=== PATIENT | male | born 1945 | race Caucasian/White ===

== ENCOUNTER 2018-01-10 19:42 | Inpatient (IN) | payer MEDICARE ==
[2018-01-10 20:06] LABS: ABSOLUTE BASOPHILS # (AUTO) 0.2 10^3/uL (0.0-0.2); ABSOLUTE EOSINOPHILS # (AUTO) 0.3 10^3/uL (0.0-0.6); ABSOLUTE LYMPHOCYTES (AUTO) 1.4 10^3/uL (0.5-4.7); ABSOLUTE MONOCYTES (AUTO) 0.8 10^3/uL (0.1-1.4); ABSOLUTE NEUT (AUTO) 5.2 10^3/uL (1.7-8.2); BASOPHILS % (AUTO) 2.5 % (0-2); EOSINOPHILS % (AUTO) 3.3 % (0-6); HEMATOCRIT 37.9 % (37.9-51.0); HEMOGLOBIN 12.1 g/dL (13.5-17.0); LYMPHOCYTES % (AUTO) 18.2 % (13-45); MEAN CORPUSCULAR HEMOGLOBIN 25.7 pg (27.0-33.4); MEAN CORPUSCULAR HGB CONC 31.9 g/dL (32.0-36.0); MEAN CORPUSCULAR VOLUME 80 fl (80-97); MONOCYTES % (AUTO) 10.2 % (3-13); PLATELET COUNT 404 10^3/uL (150-450); RED BLOOD COUNT 4.71 10^6/uL (4.35-5.55); RED CELL DISTRIBUTION WIDTH 18.5 % (11.5-14.0); SEGMENTED NEUTROPHILS % (AUTO) 65.8 % (42-78); TOTAL CELLS COUNTED % (AUTO) 100 %; WHITE BLOOD COUNT 7.9 10^3/uL (4.0-10.5)
[2018-01-10 20:30] LABS: ALANINE AMINOTRANSFERASE 16 U/L (21-72); ALBUMIN 3.9 g/dL (3.5-5.0); ALKALINE PHOSPHATASE 71 U/L (38-126); ANION GAP 13 (5-19); ASPARTATE AMINO TRANSFERASE 23 U/L (17-59); BILIRUBIN,DIRECT 0.4 mg/dL (0.0-0.4); BILIRUBIN,TOTAL 0.4 mg/dL (0.2-1.3); BLOOD UREA NITROGEN 38 mg/dL (7-20); CALCIUM 9.2 mg/dL (8.4-10.2); CARBON DIOXIDE 28 mmol/L (22-30); CHLORIDE 102 mmol/L (98-107); CREATINE KINASE 109 U/L (55-170); GLUCOSE 185 mg/dL (75-110); POTASSIUM 4.5 mmol/L (3.6-5.0); SODIUM 143.2 mmol/L (137-145); TOTAL PROTEIN 7.9 g/dL (6.3-8.2)
[2018-01-10 20:42] LABS: CREATINE KINASE MB 2.68 ng/mL (<4.55)
[2018-01-10 20:46] LABS: TROPONIN I 0.07 ng/mL
[2018-01-10] MEDS ORDERED: RINGERS SOLUTION,LACTATED 1,000 ML IV ONE (21:16)
--- NOTE | 2018-01-10 22:50 | RADIOLOGY REPORT (SQ) ---
EXAM DESCRIPTION: CHEST SINGLE VIEW COMPLETED DATE/TIME: 01/10/2018 9:43 pm REASON FOR STUDY: cp COMPARISON: None. EXAM PARAMETERS: NUMBER OF VIEWS: One view. TECHNIQUE: Single frontal radiographic view of the chest acquired. RADIATION DOSE: NA LIMITATIONS: None. FINDINGS: LUNGS AND PLEURA: No consolidation, masses or pneumothorax. No pleural effusion. MEDIASTINUM AND HILAR STRUCTURES: No masses. Contour normal. HEART AND VASCULAR STRUCTURES: Heart normal in size. Normal vasculature. BONES: No acute findings. HARDWARE: CABG. Cardiac pacer. OTHER: No other significant finding. IMPRESSION: NO ACUTE RADIOGRAPHIC FINDING IN THE CHEST. TECHNICAL DOCUMENTATION: JOB ID: [id number] [place]-72 2010 [employer]- All Rights Reserved Reading location - IP/workstation name: [email or web address]
[2018-01-10] MEDS ORDERED: PREGABALIN 50 MG CAPSULE PO ONE (22:58)
[2018-01-10] MEDS ORDERED: FAMOTIDINE 20 MG TABLET PO ONE (22:58)
--- NOTE | 2018-01-10 23:00 | ER Document Report ---
ED General - General Chief Complaint: Weakness Stated Complaint: WEAKNESS Time Seen by Provider: 01/10/18 21:15 Notes: Patient is a 72-year-old male with past medical history of coronary artery disease status post CABG, hypertension, hyperlipidemia, diabetes, peripheral vascular disease, peripheral neuropathy, who presents with generalized weakness. Patient reports that for the past 2 weeks he has been progressively worsening generalized weakness and fatigue. His main concern is that anytime he goes from a sitting to standing position he becomes very lightheaded and feels that he might pass out. He notes that he recently had his furosemide changed to bumetanide feels that this may be contributing to his symptoms. He denies a history of similar symptoms in the past. He denies any actual syncopal episodes. No chest pain or shortness of breath. He has not spoken with his primary care doctor regarding today's concerns. TRAVEL OUTSIDE OF THE [place] IN LAST 30 DAYS: No - Related Data Allergies/Adverse Reactions: No Known Allergies Allergy (Verified 01/10/18 20:24) Past Medical History - General Information source: Patient - Social History Smoking Status: Current Every Day Smoker Chew tobacco use (# tins/day): No Frequency of alcohol use: None Drug Abuse: None Lives with: Alone Family History: Reviewed & Not Pertinent Patient has suicidal ideation: No Patient has homicidal ideation: No - Past Medical History Cardiac Medical History: Reports: Hx Heart Attack, Hx Hypertension Endocrine Medical History: Reports: Hx Diabetes Mellitus Type 2 Renal/ Medical History: Denies: Hx Peritoneal Dialysis Past Surgical History: Reports: Hx Cardiac Surgery - pacemaker; CABG Review of Systems - Review of Systems Notes: Constitutional: Negative for fever. HENT: Negative for sore throat. Eyes: Negative for visual changes. Cardiovascular: Negative for chest pain. Positive for orthostasis Respiratory: Negative for shortness of breath. Gastrointestinal: Negative for abdominal pain, vomiting or diarrhea. Genitourinary: Negative for dysuria. Musculoskeletal: Negative for back pain. Skin: Negative for rash. Neurological: Negative for headaches, weakness or numbness. 10 point ROS negative except as marked above and in HPI. Physical Exam - Vital signs Vitals: Temp 98.5 F 01/10/18 19:50 Interpretation: Normal Notes: PHYSICAL EXAMINATION: GENERAL: Well-appearing, well-nourished and in no acute distress. HEAD: Atraumatic, normocephalic. EYES: Pupils equal round and reactive to light, extraocular movements intact, sclera anicteric, conjunctiva are normal. ENT: nares patent, oropharynx clear without exudates. Dry mucous membranes. NECK: Normal range of motion, supple without lymphadenopathy LUNGS: Breath sounds clear to auscultation bilaterally and equal. No wheezes rales or rhonchi. HEART: Regular rate and rhythm without murmurs ABDOMEN: Soft, nontender, normoactive bowel sounds. No guarding, no rebound. No masses appreciated. EXTREMITIES: Normal range of motion, no pitting or edema. No cyanosis. NEUROLOGICAL: Face symmetric. Tongue protrudes midline. Extraocular motions intact. Pupils are 2 mm and equally reactive. Normal speech, gait deferred. 5 out of 5 strength in both the distal and proximal upper and lower extremities bilaterally. Sensation is grossly intact throughout. Finger to nose testing normal. Pronator drift normal. PSYCH: Normal mood, normal affect. SKIN: Warm, Dry, normal turgor, no rashes or lesions noted. Course - Re-evaluation Re-evalutation: 01/10/18 23:02 Patient presents with complaints of orthostatic hypotension and lightheadedness with associated near syncope particularly with positional changes. He states this is been ongoing for the past 1-2 weeks but is worsened dramatically in the past several days. He denies any focal neurologic deficits or vertigo. He has no focal neurologic deficits on examination. He states that he was recently transitioned from furosemide to bumetanide for a history of fluid retention and mild CHF. He has no known history of chronic kidney disease, has never seen a custom shoemaker, but we have no old labs for comparison. His laboratories today do show findings consistent with a prerenal azotemia with a GFR of 27 BUN/ creatinine ratio 17. I suspect that the patient has been over diuresed and this explains his orthostatic hypotension and symptoms of orthostasis. He has received 2 500 cc boluses of lactated Ringer's with some improvement of his symptoms. Given his markedly low GFR I have discussed with the hospitalist for admission to ensure that his kidney function has normalized and that he becomes less symptomatic as he currently lives alone and is a high risk for falls as well. - Vital Signs Vital signs: Temp Pulse Resp BP Pulse Ox 98.9 F 20 133/62 H 92 01/10/18 23:30 01/11/18 02:00 01/11/18 02:01 01/11/18 02:01 - Laboratory Result Diagrams: 01/10/18 19:55 01/10/18 19:55 Laboratory results interpreted by me: 01/10/18 01/10/18 19:55 19:55 Hgb 12.1 L MCH 25.7 L MCHC 31.9 L RDW 18.5 H Basophils % 2.5 H BUN 38 H Creatinine 2.39 H Est GFR ( Amer) 33 L Est GFR (Non-Af Amer) 27 L Glucose 185 H ALT 16 L - Diagnostic Test Radiology reviewed: Image reviewed, Reports reviewed Radiology results interpreted by me: 01/10/18 23:01 Chest x-ray: No acute infiltrate or pneumothorax - EKG Interpretation by Me Additional EKG results interpreted by me: 01/10/18 23:02 V paced complexes. Rate 82. Discharge - Discharge Clinical Impression: Prerenal azotemia, Orthostasis, Elevated troponin Condition: Fair Disposition: ADMITTED INPATIENT Admitting Provider: Hospitalist Unit Admitted: Telemetry
[2018-01-10] MEDS ORDERED: ONDANSETRON HCL INJ/PF 4 MG/2 ML SDV IV PRN (23:37)
[2018-01-10] MEDS ORDERED: NORMAL SALINE 1000 ML 1,000 ML IV PRN (23:44)
--- NOTE | 2018-01-11 00:09 | PDOC H&P ---
History of Present Illness Admission Date/PCP: 01/10/18 23:13 History of Present Illness: MAGDY BOWIE is a 72 year old male patient presents with 2 weeks history of dizziness and near syncope whenever he tries to assume upright position. His condition worsened over the last several days. Patient has been on Lasix for leg swelling and congestive heart failure and recently his Lasix switched to bumetanide. Patient denies fever, chills, chest pain, palpitation, cough, nausea, vomiting or diarrhea. His initial blood workup shows elevated creatinine of 2.39 and GFR of 27. We do not know his baseline creatinine but patient claims that he has never been diagnosed with kidney disease. Even though he has dizziness he denies blurring of vision or headache. Past Medical History Cardiac Medical History: Reports: Myocardial Infarction, Hypertension Endocrine Medical History: Reports: Diabetes Mellitus Type 2 Social History Smoking Status: Current Every Day Smoker Frequency of Alcohol Use: None Hx Recreational Drug Use: No Drugs: None - Advance Directive Resuscitation Status: Full Code Family History Family History: DM, Hypertension Parental Family History Reviewed: Yes Children Family History Reviewed: Yes Sibling(s) Family History Reviewed.: Yes Medication/Allergy Allergies/Adverse Reactions: No Known Allergies Allergy (Verified 01/10/18 20:24) Review of Systems Constitutional: PRESENT: as per HPI Eyes: ABSENT: visual disturbances Cardiovascular: ABSENT: chest pain, dyspnea on exertion, edema, orthropnea, palpitations Respiratory: ABSENT: cough, hemoptysis Gastrointestinal: ABSENT: abdominal pain, constipation, diarrhea, hematemesis, hematochezia, nausea, vomiting Neurological: PRESENT: as per HPI Psychiatric: ABSENT: anxiety, depression, homidical ideation, suicidal ideation Physical Exam Vital Signs: Temp Pulse Resp BP Pulse Ox 98.9 F 17 105/50 L 97 01/10/18 23:30 01/10/18 23:32 01/10/18 23:32 01/10/18 23:31 General appearance: PRESENT: no acute distress Head exam: PRESENT: atraumatic, normocephalic Eye exam: PRESENT: conjunctiva pink, EOMI, PERRLA. ABSENT: scleral icterus Respiratory exam: PRESENT: clear to auscultation [place]. ABSENT: rales, rhonchi, wheezes Cardiovascular exam: PRESENT: RRR. ABSENT: diastolic murmur, rubs, systolic murmur GI/Abdominal exam: PRESENT: normal bowel sounds, soft. ABSENT: distended, guarding, mass, organolmegaly, rebound, tenderness Neurological exam: PRESENT: alert, awake, oriented to time, oriented to situation Psychiatric exam: PRESENT: normal mood Results Impressions: Chest X-Ray 01/10/18 21:16 IMPRESSION: NO ACUTE RADIOGRAPHIC FINDING IN THE CHEST. Assessment & Plan - Diagnosis (1) Acute kidney injury Is this a current diagnosis for this admission?: Yes Plan: Most probably due to volume contraction secondary to aggressive diuresis. For now we will hold his diuretics and cautiously hydrate him. And monitor his renal function (2) Hypertension Qualifiers: Hypertension type: essential hypertension Qualified Code(s): I10 - Essential (primary) hypertension Is this a current diagnosis for this admission?: Yes Plan: Monitor closely (3) Diabetes mellitus Qualifiers: Diabetes mellitus type: type 2 Is this a current diagnosis for this admission?: Yes Plan: Patient has been started on sliding scale (4) Coronary artery disease Qualifiers: Coronary Disease-Associated Artery/Lesion type: [place] artery Is this a current diagnosis for this admission?: Yes Plan: Stable does not have angina. Continue his home medication (5) Congestive heart failure Qualifiers: Heart failure type: unspecified Is this a current diagnosis for this admission?: Yes Plan: Echo requested
[2018-01-11] MEDS ORDERED: GLUCAGON,HUMAN RECOMB 1 MG INJ IM PRN (00:11)
[2018-01-11] MEDS ORDERED: DEXTROSE 50%-WATER 25 GM/50 ML DISP.SYRIN IV PRN ×2 (00:11)
[2018-01-11] MEDS ORDERED: INSULIN LISPRO 100 UNIT/ML 3 ML VIAL SUBCUT PRN (00:11)
[2018-01-11] MEDS ORDERED: DEXTROSE 40% GEL 15 GM TUBE PO PRN ×2 (00:11)
[2018-01-11 02:17] LABS: APPEARANCE,URINE CLEAR; BILIRUBIN,URINE NEGATIVE (NEGATIVE); COLOR,URINE YELLOW; GLUCOSE, URINE 50 mg/dL (NEGATIVE); KETONES,URINE NEGATIVE (NEGATIVE); LEUKOCYTE ESTERASE,URINE NEGATIVE (NEGATIVE); NITRITE,URINE NEGATIVE (NEGATIVE); PROTEIN,URINE 100 mg/dL (NEGATIVE); URINE SPECIFIC GRAVITY 1.009; UROBILINOGEN,URINE NEGATIVE mg/dL (<2.0)
[2018-01-11] MEDS: LANSOPRAZOLE 30 MG TAB.RAP.DR PO SCH (05:24)
[2018-01-11] MEDS: HEPARIN SOD (PORCINE) 5,000 UNIT/ML 1 ML SYRINGE SUBCUT SCH ×3 (05:25→21:12)
[2018-01-11 07:06] LABS: HEMATOCRIT 33.6 % (37.9-51.0); HEMOGLOBIN 10.7 g/dL (13.5-17.0); MEAN CORPUSCULAR HEMOGLOBIN 25.4 pg (27.0-33.4); MEAN CORPUSCULAR HGB CONC 31.8 g/dL (32.0-36.0); MEAN CORPUSCULAR VOLUME 80 fl (80-97); PLATELET COUNT 325 10^3/uL (150-450); RED BLOOD COUNT 4.21 10^6/uL (4.35-5.55); RED CELL DISTRIBUTION WIDTH 17.9 % (11.5-14.0); WHITE BLOOD COUNT 7.1 10^3/uL (4.0-10.5)
[2018-01-11 07:23] LABS: ANION GAP 13 (5-19); BLOOD UREA NITROGEN 34 mg/dL (7-20); CALCIUM 8.6 mg/dL (8.4-10.2); CARBON DIOXIDE 25 mmol/L (22-30); CHLORIDE 108 mmol/L (98-107); GLUCOSE 92 mg/dL (75-110); POTASSIUM 4.3 mmol/L (3.6-5.0); SODIUM 145.7 mmol/L (137-145)
--- NOTE | 2018-01-11 07:38 | EKG REPORT ---
SEVERITY:- ABNORMAL ECG - VENTRICULAR-PACED COMPLEXES, NON-DIAGNOSTIC PROBABLE LEFT ATRIAL ABNORMALITY : Confirmed by: Jesus Ibarra MD 11-Jan-2018 07:38:09
[2018-01-11 07:53] LABS: ABSOLUTE LYMPHOCYTES# (MANUAL) 1.2 10^3/uL (0.5-4.7); ABSOLUTE MONOCYTES # (MANUAL) 0.6 10^3/uL (0.1-1.4); ABSOLUTE NEUTROPHILS# (MANUAL) 5.2 10^3/uL (1.7-8.2); BAND NEUTROPHILS % (MANUAL) 1 % (3-5); BASOPHILS % (MANUAL) 0 % (0-2); EOSINOPHILS % (MANUAL) 2 % (0-6); LYMPHOCYTES % (MANUAL) 17 % (13-45); MONOCYTES % (MANUAL) 8 % (3-13); SEGMENTED NEUTROPHILS % (MAN) 72 % (42-78); TOTAL CELLS COUNTED 100
[2018-01-11 07:56] LABS: TOXIC GRANULATION SLIGHT
[2018-01-11 07:57] LABS: ANISOCYTOSIS 1+; HYPOCHROMASIA SLIGHT; OVALOCYTES SLIGHT; PLATELET COMMENT ADEQUATE
[2018-01-11] MEDS: INSULIN LISPRO 100 UNIT/ML 3 ML VIAL SUBCUT PRN ×2 (12:12→17:58)
--- NOTE | 2018-01-11 17:23 | PDOC PROGRESS REPORT ---
Subjective Progress Note for:: 01/11/18 Subjective:: MAGDY BOWIE is a 72 year old male patient presents with 2 weeks history of dizziness and near syncope whenever he tries to assume upright position. His condition worsened over the last several days. Patient has been on Lasix for leg swelling and congestive heart failure and recently his Lasix switched to bumetanide. Patient denies fever, chills, chest pain, palpitation, cough, nausea, vomiting or diarrhea. His initial blood workup shows elevated creatinine of 2.39 and GFR of 27. We do not know his baseline creatinine but patient claims that he has never been diagnosed with kidney disease. Reason For Visit: ACUTE KIDNEY INJURY,ORTHOSTATIC HYPOTENSION Physical Exam Vital Signs: Temp Pulse Resp BP Pulse Ox 97.4 F 70 20 151/65 H 97 01/11/18 15:29 01/11/18 15:29 01/11/18 15:29 01/11/18 15:29 01/11/18 15:29 Intake & Output 01/10/18 01/11/18 01/12/18 06:59 06:59 06:59 Output Total 450 Balance -450 Weight 93.4 kg General appearance: PRESENT: no acute distress, well-developed Head exam: PRESENT: atraumatic, normocephalic Eye exam: PRESENT: conjunctiva pink, PERRLA. ABSENT: scleral icterus Mouth exam: PRESENT: dry mucosa, tongue midline Neck exam: ABSENT: carotid bruit, JVD, lymphadenopathy, thyromegaly Respiratory exam: PRESENT: clear to auscultation [place]. ABSENT: rales, rhonchi, wheezes Cardiovascular exam: PRESENT: RRR. ABSENT: diastolic murmur, rubs, systolic murmur Pulses: PRESENT: normal dorsalis pedis pul Vascular exam: PRESENT: normal capillary refill GI/Abdominal exam: PRESENT: normal bowel sounds, soft. ABSENT: distended, guarding, mass, organolmegaly, rebound, tenderness Rectal exam: PRESENT: deferred Extremities exam: PRESENT: full ROM. ABSENT: calf tenderness, clubbing, pedal edema Neurological exam: PRESENT: alert, awake, oriented to person, oriented to place , oriented to time, oriented to situation, CN II-XII grossly intact. ABSENT: motor sensory deficit Psychiatric exam: PRESENT: appropriate affect, normal mood. ABSENT: homicidal ideation, suicidal ideation Skin exam: PRESENT: dry, intact, warm. ABSENT: cyanosis, rash Results Laboratory Results: 01/11/18 06:44 01/11/18 06:44 01/11/18 01/11/18 01/11/18 00:10 06:44 06:44 WBC 7.1 RBC 4.21 L Hgb 10.7 L Hct 33.6 L MCV 80 MCH 25.4 L MCHC 31.8 L RDW 17.9 H Plt Count 325 Seg Neutrophils % Not Reportable Lymphocytes % Not Reportable Monocytes % Not Reportable Eosinophils % Not Reportable Basophils % Not Reportable Absolute Neutrophils Not Reportable Absolute Lymphocytes Not Reportable Absolute Monocytes Not Reportable Absolute Eosinophils Not Reportable Absolute Basophils Not Reportable Sodium 145.7 H Potassium 4.3 Chloride 108 H Carbon Dioxide 25 Anion Gap 13 BUN 34 H Creatinine 2.12 H Est GFR ( Amer) 37 L Est GFR (Non-Af Amer) 31 L Glucose 92 Calcium 8.6 Urine Color YELLOW Urine Appearance CLEAR Urine pH 6.0 Ur Specific [place] 1.009 Urine Protein 100 H Urine Glucose (UA) 50 H Urine Ketones NEGATIVE Urine Blood NEGATIVE Urine Nitrite NEGATIVE Ur Leukocyte Esterase NEGATIVE Urine WBC (Auto) 0 Urine RBC (Auto) 0 Impressions: Chest X-Ray 01/10/18 21:16 IMPRESSION: NO ACUTE RADIOGRAPHIC FINDING IN THE CHEST. Assessment & Plan - Diagnosis (1) Acute kidney injury Is this a current diagnosis for this admission?: Yes Plan: Likely secondary to acute tubular necrosis. His kidney function is already improving. We will continue to hold nephrotoxic agents and adjust medications as needed. Will continue with cautious IV fluid hydration (2) Congestive heart failure Qualifiers: Heart failure type: unspecified Is this a current diagnosis for this admission?: Yes Plan: This is stable patient is currently euvolemic. Will follow up on echo result (3) Coronary artery disease Qualifiers: Coronary Disease-Associated Artery/Lesion type: [place] artery Is this a current diagnosis for this admission?: Yes Plan: Chronic and stable (4) Diabetes mellitus Qualifiers: Diabetes mellitus type: type 2 Is this a current diagnosis for this admission?: Yes Plan: Sliding scale insulin (5) Hypertension Qualifiers: Hypertension type: essential hypertension Qualified Code(s): I10 - Essential (primary) hypertension Is this a current diagnosis for this admission?: Yes Plan: Adjust meds as needed - Time Time Spent with patient: 15-24 minutes Medications reviewed and adjusted accordingly: Yes Anticipated discharge: Home Within: within 48 hours - Inpatient Certification Based on my medical assessment, after consideration of the patient's comorbidities, presenting symptoms, or acuity I expect that the services needed warrant INPATIENT care.: Yes Medical Necessity: Need For IV Fluids, Risk of Complication if Not Cared For in Hospital
--- NOTE | 2018-01-11 19:26 | XCELERA REPORT ---
[address] [address] Transthoracic Echocardiogram Report Name: MAGDY BOWIE Age: 72 yrs Gender: Male : 1945 Patient Status: Inpatient Patient Location: [address] [place] [address] Study Date: 01/11/2018 09:09 AM Height: 68 in Weight: 205 lb BSA: 2.1 m2 Procedure: A complete two-dimensional transthoracic echocardiogram was performed (2D, M-mode, spectral and color flow Doppler). The study was technically difficult with many images being suboptimal in quality. Reason For Study: CHF Ordering Physician: WENDY LAWSON Performed By: Haydee Gonzalez Interpretation Summary Left ventricular systolic function is mildly reduced. The Ejection Fraction estimate is 45-50% The left ventricle is grossly normal size. There is moderate concentric left ventricular hypertrophy. Doppler measurements suggest pseudonormalized left ventricular relaxation, which is associated with grade II/IV or mild to moderate diastolic dysfunction Regional wall motion abnormalities cannot be excluded due to limited visualization. The right ventricle is grossly normal size. Right ventricular function cannot be assessed due to poor image quality. Right atrium not well visualized secondary to technical limitations The left atrium is mildly dilated. There is a mild amount of mitral regurgitation There is no mitral valve stenosis. There is a trace amount of aortic regurgitation There is no aortic valve stenosis There is a trace amount of tricuspid regurgitation Tricuspid regurgitation jet envelope not well defined to measure RV systolic pressure accurately. The aortic root is not well visualized. The inferior vena cava was not well visualized There is no pericardial effusion. MMode/2D Measurements & Calculations RVDd: 3.4 cm LVIDd: 5.0 cm FS: 31.3 % Ao root diam: 3.3 cm IVSd: 1.4 cm LVIDs: 3.4 cm EDV(Teich): 118.2 ml LVPWd: 1.4 cm ESV(Teich): 48.6 ml Ao root area: 8.7 cm2 EF(Teich): 58.9 % LA dimension: 4.2 cm Doppler Measurements & Calculations MV E max luis antonio: MV P1/2t max luis antonio: Ao V2 max: LV V1 max P.8 cm/sec 91.8 cm/sec 128.1 cm/sec 4.6 mmHg MV A max luis antonio: MV P1/2t: 102.2 msec Ao max PG: LV V1 max: 142.6 cm/sec 6.6 mmHg 107.6 cm/sec MV E/A: 0.63 MVA(P1/2t): 2.2 cm2 MV dec slope: 263.0 cm/sec2 MV dec time: 0.36 sec PA V2 max: 65.2 cm/sec PA max P.7 mmHg Left Ventricle The left ventricle is grossly normal size. There is moderate concentric left ventricular hypertrophy. Left ventricular systolic function is mildly reduced. The Ejection Fraction estimate is 45-50%. Doppler measurements suggest pseudonormalized left ventricular relaxation, which is associated with grade II/IV or mild to moderate diastolic dysfunction. Regional wall motion abnormalities cannot be excluded due to limited visualization. Right Ventricle The right ventricle is grossly normal size. There is normal right ventricular wall thickness. Right ventricular function cannot be assessed due to poor image quality. Atria Right atrium not well visualized secondary to technical limitations. The left atrium is mildly dilated. Interarterial septum not well visualized and not well dopplered. Cannot comment on ASD/PFO presence. Mitral Valve There is moderate mitral annular calcification. There is no mitral valve stenosis. There is a mild amount of mitral regurgitation. Aortic Valve The aortic valve is not well visualized secondary to technical limitations. There is no aortic valve stenosis. There is a trace amount of aortic regurgitation. Tricuspid Valve The tricuspid valve is not well visualized secondary to technical limitations. There is no tricuspid stenosis. There is a trace amount of tricuspid regurgitation. Tricuspid regurgitation jet envelope not well defined to measure RV systolic pressure accurately. Pulmonic Valve The pulmonic valve is not well visualized. Great Vessels The aortic root is not well visualized. The inferior vena cava was not well visualized. Effusions There is no pericardial effusion. : WENDY LAWSON > Blanquita Mcneill
[2018-01-11] MEDS ORDERED: HYDRALAZINE HCL INJ/PF 20 MG/1 ML SDV IV ONE (21:00)
[2018-01-11] MEDS ORDERED: HYDRALAZINE HCL 50 MG TABLET PO ONE (21:00)
[2018-01-11] MEDS: ACETAMINOPHEN 325 MG TABLET PO PRN (22:44)
[2018-01-12 06:01] LABS: HEMOGLOBIN 10.2 g/dL (13.5-17.0); MEAN CORPUSCULAR HEMOGLOBIN 25.7 pg (27.0-33.4); MEAN CORPUSCULAR HGB CONC 31.8 g/dL (32.0-36.0); MEAN CORPUSCULAR VOLUME 81 fl (80-97); RED BLOOD COUNT 3.97 10^6/uL (4.35-5.55); WHITE BLOOD COUNT 10.7 10^3/uL (4.0-10.5)
[2018-01-12 06:06] LABS: ANION GAP 11 (5-19); BLOOD UREA NITROGEN 34 mg/dL (7-20); CALCIUM 8.7 mg/dL (8.4-10.2); CARBON DIOXIDE 20 mmol/L (22-30); CHLORIDE 111 mmol/L (98-107); GLUCOSE 114 mg/dL (75-110); POTASSIUM 5.1 mmol/L (3.6-5.0); SODIUM 142.3 mmol/L (137-145)
[2018-01-12] MEDS: LANSOPRAZOLE 30 MG TAB.RAP.DR PO SCH (06:19)
[2018-01-12] MEDS: HEPARIN SOD (PORCINE) 5,000 UNIT/ML 1 ML SYRINGE SUBCUT SCH ×3 (06:20→21:30)
[2018-01-12 06:36] LABS: ABSOLUTE LYMPHOCYTES# (MANUAL) 2.4 10^3/uL (0.5-4.7); ABSOLUTE MONOCYTES # (MANUAL) 0.7 10^3/uL (0.1-1.4); ABSOLUTE NEUTROPHILS# (MANUAL) 7.2 10^3/uL (1.7-8.2); BAND NEUTROPHILS % (MANUAL) 1 % (3-5); BASOPHILS % (MANUAL) 1 % (0-2); EOSINOPHILS % (MANUAL) 3 % (0-6); LYMPHOCYTES % (MANUAL) 22 % (13-45); MONOCYTES % (MANUAL) 7 % (3-13); SEGMENTED NEUTROPHILS % (MAN) 66 % (42-78); TOTAL CELLS COUNTED 100
[2018-01-12 06:40] LABS: ANISOCYTOSIS 1+; PLATELET CLUMPS PRESENT; PLATELET COMMENT ADEQUATE; PLATELET COUNT 255 10^3/uL (150-450); POLYCHROMASIA SLIGHT; ROULEAUX SLIGHT
[2018-01-12] MEDS: INSULIN LISPRO 100 UNIT/ML 3 ML VIAL SUBCUT PRN (12:38)
[2018-01-12] MEDS ORDERED: NORMAL SALINE 1000 ML 1,000 ML IV PRN (13:19)
--- NOTE | 2018-01-12 14:26 | PDOC PROGRESS REPORT ---
Subjective Progress Note for:: 01/12/18 Subjective:: MAGDY BOWIE is a 72 year old male patient presents with 2 weeks history of dizziness and near syncope whenever he tries to assume upright position. His condition worsened over the last several days. Patient has been on Lasix for leg swelling and congestive heart failure and recently his Lasix switched to bumetanide. Patient denies fever, chills, chest pain, palpitation, cough, nausea, vomiting or diarrhea. His initial blood workup shows elevated creatinine of 2.39 and GFR of 27. We do not know his baseline creatinine but patient claims that he has never been diagnosed with kidney disease. Reason For Visit: ACUTE KIDNEY INJURY,ORTHOSTATIC HYPOTENSION Physical Exam Vital Signs: Temp Pulse Resp BP Pulse Ox 98.8 F 76 18 148/73 H 97 01/12/18 07:43 01/12/18 07:43 01/12/18 07:43 01/12/18 07:43 01/12/18 07:43 Intake & Output 01/11/18 01/12/18 01/13/18 06:59 06:59 06:59 Intake Total 2058 Output Total 450 1225 Balance -450 833 Weight 93.4 kg 93.6 kg General appearance: PRESENT: cooperative - Sometimes, hard of hearing Head exam: PRESENT: atraumatic, normocephalic Eye exam: PRESENT: conjunctiva pink, EOMI, PERRLA. ABSENT: scleral icterus Ear exam: PRESENT: normal external ear exam Mouth exam: PRESENT: tongue midline Neck exam: ABSENT: carotid bruit, JVD, lymphadenopathy, thyromegaly Respiratory exam: PRESENT: clear to auscultation [place]. ABSENT: rales, rhonchi, wheezes Cardiovascular exam: PRESENT: RRR. ABSENT: diastolic murmur, rubs, systolic murmur Pulses: PRESENT: normal dorsalis pedis pul Vascular exam: PRESENT: normal capillary refill GI/Abdominal exam: PRESENT: normal bowel sounds, soft. ABSENT: distended, guarding, mass, organolmegaly, rebound, tenderness Rectal exam: PRESENT: deferred Extremities exam: PRESENT: full ROM. ABSENT: calf tenderness, clubbing, pedal edema Neurological exam: PRESENT: alert, awake, oriented to person, oriented to place , oriented to time, CN II-XII grossly intact. ABSENT: motor sensory deficit Psychiatric exam: PRESENT: normal mood. ABSENT: homicidal ideation, suicidal ideation Skin exam: PRESENT: dry, intact, warm. ABSENT: cyanosis, rash Results Laboratory Results: 01/12/18 04:05 01/12/18 04:05 01/12/18 01/12/18 04:05 04:05 WBC 10.7 H RBC 3.97 L Hgb 10.2 L Hct 32.0 L MCV 81 MCH 25.7 L MCHC 31.8 L RDW 18.0 H Plt Count 255 Seg Neutrophils % Not Reportable Lymphocytes % Not Reportable Monocytes % Not Reportable Eosinophils % Not Reportable Basophils % Not Reportable Absolute Neutrophils Not Reportable Absolute Lymphocytes Not Reportable Absolute Monocytes Not Reportable Absolute Eosinophils Not Reportable Absolute Basophils Not Reportable Sodium 142.3 Potassium 5.1 H Chloride 111 H Carbon Dioxide 20 L Anion Gap 11 BUN 34 H Creatinine 2.87 H Est GFR ( Amer) 26 L Est GFR (Non-Af Amer) 22 L Glucose 114 H Calcium 8.7 Impressions: Chest X-Ray 01/10/18 21:16 IMPRESSION: NO ACUTE RADIOGRAPHIC FINDING IN THE CHEST. Assessment & Plan - Diagnosis (1) Acute kidney injury Is this a current diagnosis for this admission?: Yes Plan: Likely secondary to acute tubular necrosis. Kidney function has been really improved much. Suspect he has some baseline grade 3 chronic kidney disease. I will order a renal ultrasound for further evaluation and recheck kidney function in a.m. If his kidney function remains about the same he probably can be discharged home as long as a sonogram is acceptable. Patient is anxious to be discharged. We will continue to hold nephrotoxic agents and adjust medications as needed. Will continue with cautious IV fluid hydration (2) Congestive heart failure Qualifiers: Heart failure type: unspecified Is this a current diagnosis for this admission?: Yes Plan: This is stable patient is currently euvolemic. Echo cardiogram shows EF of 45- 50% with left ventricular systolic function mildly reduced (3) Coronary artery disease Qualifiers: Coronary Disease-Associated Artery/Lesion type: [place] artery Is this a current diagnosis for this admission?: Yes Plan: Chronic and stable (4) Diabetes mellitus Qualifiers: Diabetes mellitus type: type 2 Is this a current diagnosis for this admission?: Yes (5) Hypertension Qualifiers: Hypertension type: essential hypertension Qualified Code(s): I10 - Essential (primary) hypertension Is this a current diagnosis for this admission?: Yes Plan: Will start on Metoprolol since Lisinopril on hold - Time Time Spent with patient: 15-24 minutes Medications reviewed and adjusted accordingly: Yes Anticipated discharge: Home Within: within 72 hours - Inpatient Certification Based on my medical assessment, after consideration of the patient's comorbidities, presenting symptoms, or acuity I expect that the services needed warrant INPATIENT care.: Yes Medical Necessity: Need For IV Fluids
[2018-01-12] MEDS ORDERED: METOPROLOL TARTRATE 25 MG TABLET PO ONE (15:00)
--- NOTE | 2018-01-12 16:10 | RADIOLOGY REPORT (SQ) ---
EXAM DESCRIPTION: U/S RETROPERITON (RENAL/AORTA) COMPLETED DATE/TIME: 01/12/2018 3:47 pm REASON FOR STUDY: AGUSTO, r/o obstruction COMPARISON: None. TECHNIQUE: Dynamic and static grayscale images acquired of the kidneys and bladder and recorded on P ACS. Additional selected color Doppler and spectral images recorded. LIMITATIONS: None. FINDINGS: RIGHT KIDNEY: Normal size. Cortical thinning. Multiple cysts, the largest 2 cm. No s olid or suspicious masses. No hydronephrosis. No calcifications. LEFT KIDNEY: Normal size. Cortical thinning. Multiple cysts, the largest 1.3 cm. No solid or fountain spicious masses. No hydronephrosis. Several nonobstructing renal calculi measuring up to about 4 mm. BLADDER: No masses. OTHER FINDINGS: No other significant finding. IMPRESSION: No hydronephrosis. TECHNICAL DOCUMENTATION: JOB ID: [id number] [employer]- All Rights Reserved Reading location - IP/workstation name: [email or web address]
[2018-01-12] MEDS ORDERED: LORATADINE/PSEUDOEPHEDRINE SUL 10-240 MG TAB.SR.24H PO ONE (16:30)
[2018-01-12] MEDS: SODIUM CHLORIDE NASAL SPRAY 44 ML NASL SCH ×2 (17:39→21:30)
[2018-01-12] MEDS: METOPROLOL TARTRATE 25 MG TABLET PO SCH (21:30)
[2018-01-12] MEDS ORDERED: NICOTINE 14 MG/24 HR PATCH.TD24 TD SCH (22:00)
[2018-01-12] MEDS: ACETAMINOPHEN 325 MG TABLET PO PRN (23:14)
[2018-01-13 06:09] LABS: ABSOLUTE BASOPHILS # (AUTO) 0.2 10^3/uL (0.0-0.2); ABSOLUTE EOSINOPHILS # (AUTO) 0.3 10^3/uL (0.0-0.6); ABSOLUTE LYMPHOCYTES (AUTO) 1.5 10^3/uL (0.5-4.7); ABSOLUTE MONOCYTES (AUTO) 0.8 10^3/uL (0.1-1.4); ABSOLUTE NEUT (AUTO) 4.4 10^3/uL (1.7-8.2); BASOPHILS % (AUTO) 2.2 % (0-2); EOSINOPHILS % (AUTO) 4.5 % (0-6); HEMATOCRIT 32.3 % (37.9-51.0); HEMOGLOBIN 10.3 g/dL (13.5-17.0); LYMPHOCYTES % (AUTO) 20.6 % (13-45); MEAN CORPUSCULAR HEMOGLOBIN 25.5 pg (27.0-33.4); MEAN CORPUSCULAR HGB CONC 31.9 g/dL (32.0-36.0); MEAN CORPUSCULAR VOLUME 80 fl (80-97); MONOCYTES % (AUTO) 11.3 % (3-13); PLATELET COUNT 273 10^3/uL (150-450); RED BLOOD COUNT 4.03 10^6/uL (4.35-5.55); RED CELL DISTRIBUTION WIDTH 17.7 % (11.5-14.0); SEGMENTED NEUTROPHILS % (AUTO) 61.4 % (42-78); TOTAL CELLS COUNTED % (AUTO) 100 %; WHITE BLOOD COUNT 7.2 10^3/uL (4.0-10.5)
[2018-01-13] MEDS: LANSOPRAZOLE 30 MG TAB.RAP.DR PO SCH (06:19)
[2018-01-13] MEDS: HEPARIN SOD (PORCINE) 5,000 UNIT/ML 1 ML SYRINGE SUBCUT SCH ×2 (06:19→13:49)
[2018-01-13 06:31] LABS: ANION GAP 9 (5-19); BLOOD UREA NITROGEN 29 mg/dL (7-20); CALCIUM 8.9 mg/dL (8.4-10.2); CARBON DIOXIDE 22 mmol/L (22-30); CHLORIDE 111 mmol/L (98-107); GLUCOSE 110 mg/dL (75-110); POTASSIUM 4.5 mmol/L (3.6-5.0); SODIUM 142.1 mmol/L (137-145)
[2018-01-13] MEDS: SODIUM CHLORIDE NASAL SPRAY 44 ML NASL SCH ×3 (09:41→15:04)
[2018-01-13] MEDS: METOPROLOL TARTRATE 25 MG TABLET PO SCH (09:42)
[2018-01-13] MEDS ORDERED: LORATADINE/PSEUDOEPHEDRINE SUL 10-240 MG TAB.SR.24H PO SCH (10:00)
--- NOTE | 2018-01-13 12:06 | PDOC DISCHARGE SUMMARY ---
General - Admit/Disc Date/PCP Admission Date/Primary Care Provider: 01/10/18 23:13 Discharge Date: 01/13/18 - Discharge Diagnosis (1) Acute kidney injury Is this a current diagnosis for this admission?: Yes (2) Hypertension Is this a current diagnosis for this admission?: Yes (3) Diabetes mellitus Is this a current diagnosis for this admission?: Yes (4) Coronary artery disease Is this a current diagnosis for this admission?: Yes (5) Congestive heart failure Is this a current diagnosis for this admission?: Yes - Additional Information Resuscitation Status: Full Code Discharge Diet: Cardiac, Diabetic Discharge Activity: Activity As Tolerated Prescriptions: Carvedilol [Coreg 12.5 mg Tablet] 12.5 mg PO Q12 #60 tablet Home Medications: Finasteride [Proscar 5 mg Tablet] 5 mg PO DAILY 01/11/18 Gabapentin [Neurontin 300 mg Capsule] 300 mg PO Q8 01/11/18 Lisinopril [Prinivil] 20 mg PO DAILY 01/11/18 Tamsulosin HCl [Flomax 0.4 mg Cap.sr] 0.4 mg PO DAILY 01/11/18 Carvedilol [Coreg 12.5 mg Tablet] 12.5 mg PO Q12 #60 tablet 01/13/18 History of Present Illness History of Present Illness: MAGDY BOWIE is a 72 year old male patient presents with 2 weeks history of dizziness and near syncope whenever he tries to assume upright position. His condition worsened over the last several days. Patient has been on Lasix for leg swelling and congestive heart failure and recently his Lasix switched to bumetanide. Patient denies fever, chills, chest pain, palpitation, cough, nausea, vomiting or diarrhea. His initial blood workup shows elevated creatinine of 2.39 and GFR of 27. We do not know his baseline creatinine but patient claims that he has never been diagnosed with kidney disease. Even though he has dizziness he denies blurring of vision or headache. Hospital Course Hospital Course: Mr. Bowie is 72 years old male patient admitted for dizziness, orthostatic hypotension and recurrent fall. Patient found to have acute kidney injury with creatinine of 2.39 and it is attributed to aggressive diuresis. During his stay patient cautiously hydrated with normal saline at a rate of 75 mL/h and will hold his diuretics. His kidney function shows improvement evidenced by his creatinine which is trending down from 2.39 to 1.75. His echocardiogram reported as mildly decreased ejection fraction which is 45-50% and diastolic dysfunction grade 2/6. On the day of discharge I seen and examined the patient at bedside and he is awake alert oriented and eager to go home. I will continue all his home medication except the diuretics and I added for him Coreg 12.5 mg p.o. twice daily. Patient advised to have follow-up with his primary care physician in the coming 1 week and and his PCP will restart him his diuretics as needed. Physical Exam Vital Signs: Temp Pulse Resp BP Pulse Ox 98.1 F 75 18 170/74 H 95 01/13/18 11:32 01/13/18 11:32 01/13/18 11:32 01/13/18 03:56 01/13/18 11:32 Intake & Output 01/12/18 01/13/18 01/14/18 06:59 06:59 06:59 Intake Total 2058 2510 Output Total 1225 1125 Balance 833 1385 Weight 93.6 kg 93 kg General appearance: PRESENT: no acute distress, well-developed, well-nourished Head exam: PRESENT: atraumatic, normocephalic Respiratory exam: PRESENT: clear to auscultation [place]. ABSENT: rales, rhonchi, wheezes Cardiovascular exam: PRESENT: RRR. ABSENT: diastolic murmur, rubs, systolic murmur Neurological exam: PRESENT: alert, awake, oriented to person, oriented to place , oriented to time, oriented to situation, CN II-XII grossly intact. ABSENT: motor sensory deficit Psychiatric exam: PRESENT: appropriate affect, normal mood. ABSENT: homicidal ideation, suicidal ideation Skin exam: PRESENT: dry, intact, warm. ABSENT: cyanosis, rash Results Laboratory Results: 01/13/18 05:53 01/13/18 05:53 01/13/18 01/13/18 05:53 05:53 WBC 7.2 RBC 4.03 L Hgb 10.3 L Hct 32.3 L MCV 80 MCH 25.5 L MCHC 31.9 L RDW 17.7 H Plt Count 273 Seg Neutrophils % 61.4 Lymphocytes % 20.6 Monocytes % 11.3 Eosinophils % 4.5 Basophils % 2.2 H Absolute Neutrophils 4.4 Absolute Lymphocytes 1.5 Absolute Monocytes 0.8 Absolute Eosinophils 0.3 Absolute Basophils 0.2 Sodium 142.1 Potassium 4.5 Chloride 111 H Carbon Dioxide 22 Anion Gap 9 BUN 29 H Creatinine 1.95 H Est GFR ( Amer) 41 L Est GFR (Non-Af Amer) 34 L Glucose 110 Calcium 8.9 01/13/18 05:53 NT-Pro-B Natriuret Pep 6620 H Impressions: Chest X-Ray 01/10/18 21:16 IMPRESSION: NO ACUTE RADIOGRAPHIC FINDING IN THE CHEST. Renal Ultrasound 01/12/18 00:00 IMPRESSION: No hydronephrosis. Qualifiers - * PATIENT BEING DISCHARGED WITH ANY OF THE FOLLOWING DIAGNOSIS: Heart Failure VTE patient discharged on overlapping Therapy?: No Reason(s) for not prescribing Overlap Therapy:: Not indicated Stroke Pt being discharged on Anti-thrombolytic therapy?: No Reason(s) for not prescribing Anti-thrombolytic therapy:: Not indicated Stroke Pt being discharged on Anti-coagulation therapy?: No Reason(s) for not prescribing Anti-coagulation therapy:: Not indicated Stroke Pt being discharged on Statins?: No Reason(s) for not prescribing Statins therapy:: Not indicated [place] Pt being discharged on Aspirin therapy?: No Reason(s) for not prescribing Aspirin therapy:: Not indicated [place] Pt being discharged on Statins?: Yes [place] Pt discharged ACEI/ARBS?: Yes HF Pt being discharged on ACEI for LVEF less than 40%?: Yes HF Pt being discharged on ARBS for LVEF less than 40%?: No Reason(s) for not prescribing ARBS:: Not indicated HF Pt with Afib discharged with Warfarin?: No Reason(s) for not prescribing Warfarin:: Not indicated HF Pt discharged on evidence-based Beta Guilherme:: Yes
[2018-01-13 16:08] VITALS: BP 176/74
== END 2018-01-13 17:25 | disposition home or self-care (01) | DRG 683 ==
LOC: ER 19:42 → EH 23:13 → 5 01-11 04:20
PROVIDERS: ADMIT Internal Medicine; ATTEND Internal Medicine
DX: N17.0 Acute kidney failure with tubular necrosis (principal); I13.0 Hypertensive heart and chronic kidney disease with heart failure and stage 1 through stage 4 chronic kidney disease, or unspecified chronic kidney disease; I50.9 Heart failure, unspecified; N18.3 Chronic kidney disease, stage 3 (moderate); I95.1 Orthostatic hypotension; E11.22 Type 2 diabetes mellitus with diabetic chronic kidney disease; Z60.2 Problems related to living alone; I25.10 Atherosclerotic heart disease of native coronary artery without angina pectoris; E78.5 Hyperlipidemia, unspecified; E11.51 Type 2 diabetes mellitus with diabetic peripheral angiopathy without gangrene; E11.42 Type 2 diabetes mellitus with diabetic polyneuropathy; R53.1 Weakness; F17.210 Nicotine dependence, cigarettes, uncomplicated; I25.2 Old myocardial infarction; Z95.0 Presence of cardiac pacemaker; Z95.1 Presence of aortocoronary bypass graft
CPT/HCPCS: 36415; 71045; 76770; 80048; 80053; 81001; 82550; 82553; 82962; 83880; 84484; 85025; 93005; 93010; 93306; 96360; 99285; G8978-GP; G8979-GP; J0360; J1644; J3490; J7030; J7120